=== PATIENT | male | born 1965 | race African-American/Black ===

== ENCOUNTER 2019-08-29 10:46 | Emergency (ER) | payer OTHER ==
[~2019-08-29] VITALS: Ht 188 cm; Wt 86.2 kg
[2019-08-29 11:23] LABS: MCH 30.1 pg (26.0-34.0); MCHC 33.4 g/dL (28.0-37.0); MCV 90.2 fL (80.0-100.0); PLATELET COUNT 195 thou/uL (150-400); RBC 4.99 mil/uL (4.50-6.00); RDW 13.1 % (10.5-14.5); WBC 3.6 thou/uL (4.0-11.0)
[2019-08-29 11:31] LABS: ANION GAP 5 mmol/L (7-16); BUN 12 mg/dL (7-18); CALCIUM 10.2 mg/dL (8.5-10.1); CHLORIDE 96 mmol/L (98-107); CO2 23 mmol/L (21-32); CREATININE 0.9 mg/dL (0.7-1.3); GLUCOSE 328 mg/dL (74-106); POTASSIUM 3.8 mmol/L (3.5-5.1); SODIUM 124 mmol/L (136-145)
[2019-08-29 11:42] LABS: SGOT 33 U/L (15-37); SGPT 71 U/L (30-65); TOTAL PROTEIN 8.3 g/dL (6.4-8.2); TROPONIN-I <0.06 ng/mL (<0.06)
[2019-08-29 12:21] LABS: URINE BILIRUBIN NEGATIVE (Negative); URINE BLOOD NEGATIVE (Negative); URINE CLARITY CLEAR; URINE COLOR YELLOW; URINE GLUCOSE-RANDOM* 3+ (Negative); URINE KETONES NEGATIVE (Negative); URINE LEUKOCYTES-REFLEX NEGATIVE (Negative); URINE NITRITE-REFLEX NEGATIVE (Negative); URINE PROTEIN (DIPSTICK) NEGATIVE (Negative); URINE SPECIFIC GRAVITY <= 1.005 (1.005-1.035); URINE UROBILINOGEN 0.2 E.U./dl (0.2-1.0)
[2019-08-29 12:37] LABS: AMP/METHAMP Negative (Negative); BARBITURATES Negative (Negative); BENZODIAZEPINES Negative (Negative); COCAINE Negative (Negative); METHADONE Negative (Negative); OPIATES Negative (Negative); PCP Negative (Negative)
[2019-08-29 12:45] LABS: ABSOLUTE NEUTROPHILS 1.1 thou/uL (1.4-8.2); PLATELET ESTIMATE NORMAL
[2019-08-29] MEDS ORDERED: METFORMIN HCL500 MG PO (13:53)
[2019-08-29 14:35] VITALS: BP 118/73
--- NOTE | 2019-08-30 12:23 | EKG ---
[address] [address] ELECTROCARDIOGRAM REPORT Name: AIMEEDeneenMATTHEWKaro Rick [facility] [id number] Admission: 08/29/19 Attend Phys: Discharge: 08/29/19 Date of : 63 Report #: [id number] THIS REPORT FOR: //name// [facility] ED Test Date: 2019-08-29 Test Time: 10:58:42 Pat Name: JESSICA YU Department: Room: Gender: M Speech Language Pathologist Assistant: RONAL : 1965 Requested By: Hussain Collier Order Number: [id number] MD: Miguel Martinez Measurements Intervals [place] Rate: 96 P: 32 DC: 203 QRS: 19 QRSD: 68 T: 35 QT: 368 QTc: 465 Interpretive Statements Sinus arrhythmia Frequent APCs Left atrial enlargement No previous ECG available for comparison Electronically Signed On 08-30-2019 12:22:54 PATTERN MARKING SUPERVISOR by Miguel Martinez [email or web address] <ELECTRONICALLY SIGNED> By: Miguel Martinez MD 08/30/19 1222 1058 1058 Miguel Martinez MD /EPI
--- NOTE | 2019-08-30 12:23 | EKG ---
[address] [address] ELECTROCARDIOGRAM REPORT Name: AIMEEJESSICA Rick [facility] [id number] Admission: 08/29/19 Attend Phys: Discharge: 08/29/19 Date of : 63 Report #: [id number] THIS REPORT FOR: //name// [facility] ED Test Date: 2019-08-29 Test Time: 11:20:09 Pat Name: JESSICA YU Department: Room: Gender: M Skein Spooler: TATIANA : 1965 Requested By: Jil Kim Order Number: [id number] MD: Miguel Martinez Measurements Intervals [place] Rate: 85 P: 35 [place]: 165 QRS: 4 QRSD: 101 T: 31 QT: 377 QTc: 449 Interpretive Statements Sinus rhythm Ventricular premature complex Probable left atrial enlargement RSR' in V1 or V2, probably normal variant No previous ECG available for comparison Electronically Signed On 08-30-2019 12:23:37 INFORMATION RECEPTIONIST by Miguel Martinez [email or web address] <ELECTRONICALLY SIGNED> By: Miguel Martinez MD 08/30/19 1223 1120 1120 MD NABEEL Hernandez
== END 2019-08-29 14:36 | disposition home or self-care (01) ==
LOC: ER 10:46
PROVIDERS: Nurse Practitioner Family
DX: R73.9 Hyperglycemia, unspecified (principal); R42 Dizziness and giddiness